=== PATIENT | female | born 1930 | race Caucasian/White ===

== ENCOUNTER 2019-04-24 14:14 | Emergency (ER) | payer MEDICARE ==
[~2019-04-24] VITALS: Ht 124.4 cm; Wt 48.1 kg
== END 2019-04-24 16:08 | disposition home or self-care (01) ==
LOC: ED 14:14
DX: L08.89 Other specified local infections of the skin and subcutaneous tissue (principal); K21.9 Gastro-esophageal reflux disease without esophagitis; E78.5 Hyperlipidemia, unspecified; I10 Essential (primary) hypertension; E03.9 Hypothyroidism, unspecified; Z95.1 Presence of aortocoronary bypass graft; Z91.040 Latex allergy status